=== PATIENT | male | born 2000 | race Caucasian/White ===

== ENCOUNTER → 2021-01-10 10:08 | Outpatient (BNVA) | payer SELFPAY | PROVIDERS: Visit Provider Nurse Practitioner Psychiatric/Mental Health | DX: Z03.89 Encounter for observation for other suspected diseases and conditions ruled out (principal) | CPT/HCPCS: 80053; 80061; 84439; 84443; 84481 ==

== ENCOUNTER 2022-10-07 06:36 | Emergency (ER) | payer OTHER, SELFPAY ==
[2022-10-07 06:43] VITALS: BP 124/78; PULSE 78; RESP 20; TEMP 37.1; O2SAT 97; BMI 25.1
--- NOTE | 2022-10-07 07:11 | ED_ITS ---
HPI - Wound/Laceration General: Chief Complaint: Wound/Laceration Stated Complaint: right pinky nail damage Time Seen by Provider: 10/07/22 06:46 Source: patient Mode of arrival: ambulatory History of Present Illness: 22-year-old male presents emergency room complaining and defect to his fingernail in the right fifth he noticed that a couple weeks ago it seemed to have eroded back he cannot recall any specific injury. He states it is tender. Onset (ago): week(s) Location: other (Right fifth) [facility] ED PFSH: Medical History Major depressive disorder, recurrent, in partial remission See comments below. Marijuana dependence Chronic use. Social History Smoking and tobacco status: current every day smoker e-cigarettes E-Cigarette Details: vaporizer device E-cig/vape details: 6mg/120ml per week Quit status (tobacco): not considering quitting Second hand smoke exposure: Yes Physical Exam Extremity: OTHER: Small defect of the nail approximately 3 mm in length extending from the leading edge of the nail proximally 1 to 2 mm wide no active bleeding no sign of infection no erythema. Course Vital Signs: Vital signs: Vital Signs Temperature 98.7 F 10/07/22 06:43 Pulse Rate 78 10/07/22 06:43 Respiratory Rate 20 H 10/07/22 06:43 Blood Pressure 124/78 10/07/22 06:43 Pulse Oximetry 97 10/07/22 06:43 MDM - Wound/Laceration Medical Decision Making Apply topical cyanoacrylate glue to protect he can use a nail glue or variation of any [id number] sold superglue . If worsens or does not improve his primary care can refer to dermatology. Tylenol or Profen for discomfort. Discharge Plan Discharge Patient Disposition: Home Clinical Impression: Injury of nail Condition: Stable Prescriptions: No Action aripiprazole 5 mg tablet 5 mg PO DAILY Qty: 30 1RF Rx Instructions: Take one tablet daily by mouth every morning fluoxetine [Prozac] 40 mg capsule 40 mg PO QAM Qty: 30 1RF Rx Instructions: take one capsule by mouth every day trazodone 100 mg tablet 100 mg PO .q hs PRN (Reason: insomnia) Qty: 30 1RF Rx Instructions: Take 1/2 tablet or 1 tablet daily at bedtime, if necessary for insomnia/sleep impairment Discharge Orders: Discharge ED (Routine); Ordered 10/07/22 Ordered By: Miguel Dumont Referrals: Kelly Szymanski FNP [Primary Care Provider] - Discharge Diet: Usual diet Discharge Activity: Resume usual activity Patient Instructions: Opioid Safety, Pain Management Activity Restrictions/Additional Instructions: You are seen today for a defect in the nail. Recommend that you apply cyanoacrylate glue to protect the underlying tissue. Reapply as needed to protect until the nailbed grows out. You can buy a superglue or nail glue either will work. If the symptoms persist follow-up with your primary care doctor they can refer you to dermatology. Coding Level of Care Code ED [facility] De[facility] Reactor Operator for Daniel Scott
== END 2022-10-07 07:33 | disposition home or self-care (01) ==
PROVIDERS: Emergency Provider Family Medicine; PCP Nurse Practitioner Family
DX: S69.91XA Unspecified injury of right wrist, hand and finger(s), initial encounter (principal); F17.290 Nicotine dependence, other tobacco product, uncomplicated; X58.XXXA Exposure to other specified factors, initial encounter
CPT/HCPCS: 99282

== ENCOUNTER 2023-03-23 10:47 | Emergency (ER) | payer SELFPAY ==
[2023-03-23 11:18] VITALS: BP 110/62; PULSE 88; RESP 18; TEMP 36.9; O2SAT 95
--- NOTE | 2023-03-23 13:48 | US_ITS ---
WS: [id number] ULTRASOUND ABDOMEN LIMITED CLINICAL INFORMATION: ruq pain, vomiting; unrelated to his covid COMPARISON: None. FINDINGS: Liver Size: Mild hepatomegaly. Craniocaudal length: 17.8 cm. Echogenicity: Normal. Surface nodularity: None. Mass (size and location): None. Bile ducts Intrahepatic ducts: Normal. Common bile duct diameter: 0.4 cm. Gallbladder Normal. Gallstones: None. Gallbladder sludge: None. Gallbladder wall thickening: None. Pericholecystic fluid: None. Sonographic Paredes sign: Absent. Pancreas Normal as visualized. Right kidney: Normal. Hydronephrosis: None. Size: 11.2 cm x 4.6 cm x 4.5 cm. Abdominal aorta and IVC Visualized portions are normal. Ascites: None. IMPRESSION: 1. Normal gallbladder. No cholelithiasis. 2. Mild hepatomegaly. 3. Normal common bile duct. 4. No hydronephrosis in the RIGHT kidney.
--- NOTE | 2023-03-23 13:49 | W.ED.NAVMDI ---
HPI - Nausea/Vomiting/Diarrhea General: Chief complaint: Nausea/Vomiting/Diarrhea Stated complaint: nausea/vomiting/abdominal pain Time Seen by Provider: 03/23/23 13:31 History of Present Illness: 22-year-old male started getting sick a week ago. On Sunday he tested positive for COVID. He was prescribed Paxil for it. He took a first dose of 3 pills and 1 hour later started having severe epigastric and right upper quadrant pain. He originally thought it was related to the medication or the infection and so has been trying to tough it out. However he continues to have severe right upper quadrant pain and recurrent vomiting. He does still have his gallbladder. He denies any known gallstones, liver issues, pancreas issues. He had a few episodes of loose stool but primarily pain and nausea. It is worse with trying to eat or with palpation. Associated symtoms: Denies altered mental status, change in vision, chest pain, dysuria or syncope Review of Systems General: Reports: 10 or more systems reviewed and unremarkable except in HPI and below Eyes: Denies: change in vision Card: Denies: chest pain, edema or syncope Resp: Denies: dyspnea or productive cough : Denies: flank pain, dysuria or urinary frequency Musc: Denies: extremity pain or extremity swelling Skin/Breast: Denies: rash or erythema Neuro: Denies: numbness in extremities, weakness in extremities, lack of coordination or difficulty walking PFS ED PFSH: Medical History Major depressive disorder, recurrent, in partial remission See comments below. Marijuana dependence Chronic use. Social History Smoking and tobacco status: current every day smoker e-cigarettes E-Cigarette Details: vaporizer device E-cig/vape details: 6mg/120ml per week Quit status (tobacco): not considering quitting Second hand smoke exposure: Yes Physical Exam Const: COMMON NORMALS: no limitations, alert and well nourished EXAM LIMITATIONS: no altered mental status HENMT: COMMON NORMALS: normocephalic, atraumatic and external ears normal HEAD & SCALP: normocephalic and atraumatic EXTERNAL EAR: Yes external ears normal MOUTH: no muffled voice Eye: COMMON NORMALS: EOMs intact bilaterally, conjunctivae normal and no scleral icterus CONJUNCTIVA: Yes conjunctivae normal Neck/C-Spine: GENERAL: Yes normal visual inspection and Yes trachea midline Resp: COMMON NORMALS: normal respiratory effort and No use of accessory muscles Cardio: COMMON NORMALS: regular rate and regular rhythm RATE: regular rate RHYTHM: regular rhythm GI: OTHER: Positive Paredes sign, right upper quadrant tenderness, unintentional guarding. Remainder of abdomen is soft and nontender. Extremity: COMMON NORMALS: normal to inspection Neuro: COMMON NORMALS: moves all extremities, no focal motor deficits and no sensory deficits noted SENSORIUM/ORIENTATION: Yes alert SPEECH: speech normal Psych: COMMON NORMALS: mental status grossly normal, Normal thought process present, cooperative, normal affect and speech normal SPEECH: Yes normal speech THOUGHT PROCESS: Normal thought process present Skin: COMMON NORMALS: no rashes or lesions noted, turgor normal and no jaundice GENERAL SKIN EXAM: no rashes or lesions noted and turgor normal Course Vital Signs: Vital signs: Vital Signs Temperature 98.4 F 03/23/23 11:18 Pulse Rate 88 03/23/23 11:18 Respiratory Rate 18 03/23/23 11:18 Blood Pressure 110/62 03/23/23 11:18 Pulse Oximetry 95 03/23/23 11:18 Oxygen Delivery Me thod Room Air 03/23/23 11:18 MDM - Nausea/Vomiting/Diarrhea Medical Decision Making Differential diagnosis includes cholecystitis, biliary colic, hepatitis from COVID infection or other cause, pancreatitis, gastritis, peptic ulcer disease, pyelonephritis, other. Cannabinoid hyperemsis syndrome also considered high in ddx. Update: RUQ US neg (liver, GB, and right kidney). LFTs normal WBC nl Lytes okay Glucose okay Suspect either cannabinoid hyeremesis or pain from covid gastroenteritis. Pt appropriate for outpatient management--see d/c instructions/meds. Lab Data 03/23/23 14:10 03/23/23 14:10 Laboratory Results WBC 6.59 10^3/uL (3.29-11.43) 03/23/23 14:10 RBC 5.42 10^6/uL (3.85-5.65) 03/23/23 14:10 Hgb 17.00 g/dL (11.27-16.99) H 03/23/23 14:10 Hct 47.7 % (37-53) 03/23/23 14:10 MCV 88.0 fl (82-101) 03/23/23 14:10 MCH 31.4 pg (27-33) 03/23/23 14:10 MCHC 35.6 g/dL (30-55) 03/23/23 14:10 RDW 12.1 % (12.1-15.1) 03/23/23 14:10 Plt Count 191 10^3/cmm (157-399) 03/23/23 14:10 MPV 10.1 fL (7.4-10.4) 03/23/23 14:10 Neut % (Auto) 62.1 % 03/23/23 14:10 Lymph % (Auto) 27.5 % 03/23/23 14:10 [place] % (Auto) 9.7 % 03/23/23 14:10 Eos % (Auto) 0.2 % 03/23/23 14:10 Baso % (Auto) 0.3 % 03/23/23 14:10 Neut # (Auto) 4.10 10^3/uL (1.8-7.7) 03/23/23 14:10 Lymph # (Auto) 1.8 10^3/uL (0.8-4.8) 03/23/23 14:10 [place] # (Auto) 0.6 10^3/uL (0.2-0.9) 03/23/23 14:10 Eos # (Auto) 0.0 10^3/uL (0.0-0.8) 03/23/23 14:10 Baso # (Auto) 0.0 10^3/uL (0.0-0.1) 03/23/23 14:10 Nucleated RBC % (auto) 0 % 03/23/23 14:10 Nucleated RBCs # 0.0 /100WBC 03/23/23 14:10 Sodium 141 mmol/L (136-145) 03/23/23 14:10 Potassium 4.2 mmol/L (3.5-5.1) 03/23/23 14:10 Chloride 102 mmol/L (98-107) 03/23/23 14:10 Carbon Dioxide 27 mmol/L (22-29) 03/23/23 14:10 Anion Gap 16.2 (5-19) 03/23/23 14:10 BUN 13 mg/dL (6-20) 03/23/23 14:10 Creatinine 0.8 mg/dL (0.7-1.2) 03/23/23 14:10 GFR Calculation 120.9 mL/min (90-130) 03/23/23 14:10 Glucose 88 mg/dL (65-115) 03/23/23 14:10 Calculated Osmolality 292 mOsm/kg (285-295) 03/23/23 14:10 Calcium 9.5 mg/dL (8.5-10.5) 03/23/23 14:10 Total Bilirubin 0.6 mg/dL (0.15-1.2) 03/23/23 14:10 AST 20 U/L (0-40) 03/23/23 14:10 ALT 21 U/L (0-41) 03/23/23 14:10 Alkaline Phosphatase 70 U/L (40-130) 03/23/23 14:10 Total Protein 7.2 g/dL (6.6-8.7) 03/23/23 14:10 Albumin 4.4 g/dL (3.5-5.2) 03/23/23 14:10 Globulin 2.8 g/dL (1.3-4.6) 03/23/23 14:10 Lipase 11 U/L (13-60) L 03/23/23 14:10 All radiology interpretation(s) finalized by discharge Discharge Plan Discharge Patient Disposition: Home Clinical Impression: Acute upper abdominal pain Condition: Stable Prescriptions: New dicyclomine 20 mg tablet 20 mg PO TID PRN (Reason: abdominal pain) 5 Days Qty: 15 0RF ondansetron 4 mg tablet,disintegrating 4 mg PO Q6H PRN (Reason: nausea and vomiting) Qty: 14 0RF Discontinued Paxlovid 300 mg (150 mg x 2)-100 mg tablets,dose pack See Rx Instructions .ROUTE .COMPLEX Rx Instructions: take 2 NIRMATRELVIR TS AND 1 RITONAVIR T TOGETHER PO BID FOR 5 DAYS (rx filled 03/19/23) No Action aripiprazole 5 mg tablet 5 mg PO DAILY Qty: 30 1RF Rx Instructions: Take one tablet daily by mouth every morning fluoxetine [Prozac] 40 mg capsule 40 mg PO QAM Qty: 30 1RF Rx Instructions: take one capsule by mouth every day trazodone 100 mg tablet 100 mg PO .q hs PRN (Reason: insomnia) Qty: 30 1RF Rx Instructions: Take 1/2 tablet or 1 tablet daily at bedtime, if necessary for insomnia/sleep impairment ondansetron 4 mg tablet,disintegrating 4 mg PO TID PRN (Reason: Nausea And Vomiting) Discharge Orders: Discharge ED (Routine); Ordered 03/23/23 Ordered By: Kings Virk Referrals: Kelly Szymanski FNP [Primary Care Provider] - 4-7 days Discharge Diet: Advance as tolerated Discharge Activity: Resume usual activity Patient Instructions: Abdominal Pain (ED), Opioid Safety, Pain Management Activity Restrictions/Additional Instructions: Your gallbladder, liver function, pancreas, kidney function, white blood cell count, electrolytes, blood sugar were all normal. We suspect that you are having 1 of 2 things 1)stomach pain from gastroenteritis due to the COVID virus or 2) cannabinoid hyperemesis syndrome. This can cause significant pain and cramping. I have prescribed dicyclomine to help with stomach pain and cramping as well as Zofran to help with nausea. You may also take loperamide as needed if you are having excessive diarrhea. Read handout about more information. Please abide by return precautions. Follow-up with PCP if not improving in the next 48 hours. Coding Level of Care Code ED Entry Level Administrative Assistant for Daniel Scott
[2023-03-23] MEDS: sodium chloride 0.9% 1,000 ML 999 ML IV (14:08)
[2023-03-23] MEDS: ketorolac 30 mg/mL INJ 15 MG IVP (14:23)
[2023-03-23] MEDS: ondansetron 2 mg/ML SDV 2 mL 4 MG IVP (14:23)
[2023-03-23] MEDS: morphine 4 mg/mL SDV 1 mL IVP (14:23)
[2023-03-23 14:24] LABS: Basophils % 0.3 %; Eosinophils % 0.2 %; Hematocrit 47.7 % (37-53); Lymphocytes # 1.8 10^3/uL (0.8-4.8); Lymphocytes % 27.5 %; Mean Corpuscular HGB Conc 35.6 g/dL (30-55); Mean Corpuscular Hemoglobin 31.4 pg (27-33); Mean Platelet Volume 10.1 fL (7.4-10.4); Monocytes # 0.6 10^3/uL (0.2-0.9); Monocytes % 9.7 %; Neutrophils % 62.1 %; Nucleated Red Blood Cells % 0 %; Platelet Count 191 10^3/cmm (157-399); Red Blood Count 5.42 10^6/uL (3.85-5.65); Red Cell Distribution Width 12.1 % (12.1-15.1); White Blood Count 6.59 10^3/uL (3.29-11.43)
[2023-03-23 14:44] LABS: Alanine Aminotransferase 21 U/L (0-41); Albumin Level 4.4 g/dL (3.5-5.2); Alkaline Phosphatase 70 U/L (40-130); Anion Gap 16.2 (5-19); Aspartate Amino Transferase 20 U/L (0-40); Blood Urea Nitrogen 13 mg/dL (6-20); Calcium 9.5 mg/dL (8.5-10.5); Carbon Dioxide 27 mmol/L (22-29); Chloride 102 mmol/L (98-107); Globulin 2.8 g/dL (1.3-4.6); Glomerular Filtration Rate 120.9 mL/min (90-130); Glucose 88 mg/dL (65-115); Lipase 11 U/L (13-60); Osmolality Calculated 292 mOsm/kg (285-295); Potassium 4.2 mmol/L (3.5-5.1); Sodium 141 mmol/L (136-145); Total Bilirubin 0.6 mg/dL (0.15-1.2); Total Protein 7.2 g/dL (6.6-8.7)
== END 2023-03-23 15:27 | disposition home or self-care (01) ==
PROVIDERS: Emergency Provider Emergency Medicine; PCP Nurse Practitioner Family
DX: R10.11 Right upper quadrant pain (principal); F17.290 Nicotine dependence, other tobacco product, uncomplicated
CPT/HCPCS: 76705; 80053; 83690; 85025; 96374; 96375; 99284; J1885; J2270; J2405; J7030